=== PATIENT | female | born 1960 | race Caucasian/White ===

== ENCOUNTER → 2017-08-04 | Day surgery (SDC) | payer BC ==
[~2017-08-04] MED LIST: Propofol 200 MG/20 ML SDV IV ONE
[2017-08-04] MEDS: Lactated Ringers 1,000 ML IV SCH (06:36)
--- NOTE | 2017-08-04 09:20 | OR ---
DATE OF OPERATION: 08/04/2017 PREOPERATIVE DIAGNOSIS: SCREENING COLONOSCOPY. POSTOPERATIVE DIAGNOSIS: SCREENING COLONOSCOPY. SURGEON: Geoff Crump MD PROCEDURE: FULL-LENGTH COLONOSCOPY. ANESTHESIA: HEAD OF COMMISSION DEPARTMENT. COMPLICATIONS: None. SPECIMEN: None. FINDINGS: Normal full length colonoscopy. RECOMMENDATIONS: Follow up colonoscopy every 10 years. INDICATIONS: Mrs. Boyd was seen for routine physical. She was overdue for her routine screening procedure. DESCRIPTION OF PROCEDURE: The patient was prepped and draped, placed in the left lateral decubitus position. A lubricated Olympus colonoscope was inserted and advanced to the cecum. The patient is slightly redundant throughout the sigmoid, but after that scope passed easily. We directly visualized the ileocecal valve and appendiceal orifice. The bowel prep was excellent. Upon withdrawal of the scope, throughout the entire length of the colon, I could find no signs of polyps, mass, ulceration, or bleeding sites. No vascular abnormalities or signs of colitis. There was no diverticula found throughout the length of the colon. The rectal vault was benign. Retroflexion of the scope in the rectum showed no anal lesions. Air was suctioned. Scope was removed without complication. AISHA/KANDIS /[id number]
== END ==
LOC: CC.SDS 06:13
PROVIDERS: ATTEND Family Medicine
DX: Z12.11 Encounter for screening for malignant neoplasm of colon (principal)
CPT/HCPCS: 45378; J7120

== ENCOUNTER → 2021-06-25 | Day surgery (SDC) | payer BC ==
[~2021-06-25] MED LIST changes: +Lactated Ringers 1,000 ML IV SCH; -Propofol 200 MG/20 ML SDV IV ONE; +Propofol 200 MG/20 ML SDV ONE; +fentaNYL 100 MCG/2 ML SDV ONE
== END ==
LOC: CC.SDS 07:11
PROVIDERS: ATTEND Family Medicine
DX: K25.9 Gastric ulcer, unspecified as acute or chronic, without hemorrhage or perforation (principal); R13.10 Dysphagia, unspecified; Z79.899 Other long term (current) drug therapy
CPT/HCPCS: 87081; J2704; J3010; J7120